=== PATIENT | male | born 1995 | race Caucasian/White ===

== ENCOUNTER 2019-03-15 03:45 | Emergency (ER) | payer OTHER, BC ==
[~2019-03-15] VITALS: Ht 193 cm; Wt 84.4 kg
[2019-03-15 04:01] VITALS: BP 122/74; Ht 193 cm; Wt 84.4 kg
== END 2019-03-15 05:20 | disposition other institution (70) ==
LOC: ED 03:45
DX: S00.83XA Contusion of other part of head, initial encounter (principal); Z98.890 Other specified postprocedural states; Y04.0XXA Assault by unarmed brawl or fight, initial encounter; Y93.89 Activity, other specified; Y92.89 Other specified places as the place of occurrence of the external cause; Y99.8 Other external cause status

== ENCOUNTER 2019-03-15 03:45 | Emergency (ER) | payer OTHER | END 2019-03-15 05:20 | disposition other institution (70) | LOC: ED 03:45 | DX: Z02.89 Encounter for other administrative examinations (principal) ==

== ENCOUNTER 2019-08-29 00:49 | Emergency (ER) | payer OTHER, BC ==
[~2019-08-29] VITALS: Ht 193 cm; Wt 90.7 kg
[2019-08-29 00:57] VITALS: Ht 193 cm; Wt 90.7 kg
[2019-08-29 02:17] VITALS: BP 140/77
== END 2019-08-29 02:17 | disposition home or self-care (01) ==
LOC: ED 00:49
DX: S93.401A Sprain of unspecified ligament of right ankle, initial encounter (principal); X50.1XXA Overexertion from prolonged static or awkward postures, initial encounter; Y93.89 Activity, other specified; Y92.89 Other specified places as the place of occurrence of the external cause; Y99.8 Other external cause status